=== PATIENT | female | born 2000 | race Two or more races ===

== ENCOUNTER → 2024-08-26 | Outpatient (BNVA) | payer MEDICAID, SELFPAY | END | disposition home or self-care (01) | PROVIDERS: PCP Nurse Practitioner Family; Referring Provider Nurse Practitioner Family; Visit Provider Nurse Practitioner Family | DX: Z30.42 Encounter for surveillance of injectable contraceptive (principal) | CPT/HCPCS: 96372; 99214; J1050 ==

== ENCOUNTER → 2024-08-27 | Outpatient (BNVA) | payer MEDICAID, SELFPAY | END | disposition home or self-care (01) | PROVIDERS: PCP Nurse Practitioner Family; Referring Provider Nurse Practitioner Family; Visit Provider Nurse Practitioner Family | DX: J06.9 Acute upper respiratory infection, unspecified (principal); J02.9 Acute pharyngitis, unspecified | CPT/HCPCS: 87804; 87811; 99213 ==

== ENCOUNTER → 2024-10-09 | Outpatient (BNVA) | payer MEDICAID, SELFPAY | END | disposition home or self-care (01) | PROVIDERS: PCP Nurse Practitioner Family; Referring Provider Nurse Practitioner Family; Visit Provider Nurse Practitioner Family | DX: Z71.2 Person consulting for explanation of examination or test findings (principal); E78.5 Hyperlipidemia, unspecified | CPT/HCPCS: 99213 ==

== ENCOUNTER → 2024-10-15 | Outpatient (BNVA) | payer MEDICAID, SELFPAY | END | disposition home or self-care (01) | PROVIDERS: PCP Nurse Practitioner Family; Referring Provider Nurse Practitioner Family; Visit Provider Nurse Practitioner Family | DX: N76.0 Acute vaginitis (principal); Z12.4 Encounter for screening for malignant neoplasm of cervix; N63.0 Unspecified lump in unspecified breast | CPT/HCPCS: 81001; 81025; 99215; Q0091 ==

== ENCOUNTER → 2024-10-30 | Outpatient (BNVA) | payer MEDICAID, SELFPAY | END | disposition home or self-care (01) | PROVIDERS: PCP Nurse Practitioner Family; Referring Provider Nurse Practitioner Family; Visit Provider Nurse Practitioner Family | DX: Z12.4 Encounter for screening for malignant neoplasm of cervix (principal); Z71.2 Person consulting for explanation of examination or test findings | CPT/HCPCS: 99212; 99213; G0463 ==

== ENCOUNTER → 2024-11-11 | Outpatient (BNVA) | payer MEDICAID, SELFPAY | END | disposition home or self-care (01) | PROVIDERS: PCP Nurse Practitioner Family; Referring Provider Nurse Practitioner Family; Visit Provider Nurse Practitioner Family | DX: Z30.011 Encounter for initial prescription of contraceptive pills (principal) | CPT/HCPCS: 81025; 99214 ==

== ENCOUNTER → 2024-11-23 | Outpatient (BNVA) | payer MEDICAID, SELFPAY | END | disposition home or self-care (01) | PROVIDERS: PCP Nurse Practitioner Family; Referring Provider Nurse Practitioner Family; Visit Provider Nurse Practitioner Family | DX: Z71.2 Person consulting for explanation of examination or test findings (principal); E78.5 Hyperlipidemia, unspecified | CPT/HCPCS: 99212; G0463 ==

== ENCOUNTER → 2024-12-25 | Outpatient (CLI) | payer MEDICAID, SELFPAY ==
--- NOTE | 2024-12-25 15:00 | XR_ITS ---
Examination: Breast ultrasound complete, bilateral Date and time of exam: December 25, 2024 1508 hrs. Indications: Patient states lump left breast this month Technique: Real-time grayscale ultrasonographic imaging bilateral breasts, including all 4 quadrants as well as nipple retroareolar and axillary regions. Findings: Sonographic images right breast 12:00 nodule circumscribed 6 x 6 mm 2:00 nodule circumscribed 8 x 6 mm 3:00 nodule circumscribed 16 x 14 mm 11:00 nodule circumscribed 7 x 7 mm 11:00 nodule circumscribed 8 x 9 mm 11:00 nodule circumscribed 6 x 6 mm Sonographic images left breast 3:00 nodule circumscribed 7 x 4 mm 4:00 nodule circumscribed 6 x 6 mm 4:00 nodule circumscribed 8 x 8 mm 6:00 nodule circumscribed 4 x 4 millimeter Impression: BI-RADS Category 3: Probably benign findings. One additional 6 month bilateral breast sonography follow-up is needed to document stability of multiple solid nodules described above
== END | disposition home or self-care (01) ==
LOC: CDIM 14:43
PROVIDERS: PCP Nurse Practitioner Family; Referring Provider Nurse Practitioner Family; Visit Provider Nurse Practitioner Family
DX: N63.25 Unspecified lump in the left breast, overlapping quadrants (principal); N63.15 Unspecified lump in the right breast, overlapping quadrants; N63.23 Unspecified lump in the left breast, lower outer quadrant; N63.11 Unspecified lump in the right breast, upper outer quadrant; N63.12 Unspecified lump in the right breast, upper inner quadrant
CPT/HCPCS: 76641

== ENCOUNTER → 2025-02-04 | Outpatient (BNVA) | payer MEDICAID, SELFPAY | END | disposition home or self-care (01) | PROVIDERS: PCP Nurse Practitioner Family; Referring Provider Nurse Practitioner Family; Visit Provider Nurse Practitioner Family | DX: Z30.09 Encounter for other general counseling and advice on contraception (principal) | CPT/HCPCS: 99215 ==

== ENCOUNTER 2025-02-24 14:50 | Outpatient (AMB) | payer MEDICAID, SELFPAY ==
[2025-02-24 15:14] VITALS: BP 135/84; PULSE 80; RESP 17; TEMP 36.8; O2SAT 99; BMI 30.9
--- NOTE | 2025-02-24 15:14 | GYNCLNT_ITS ---
Vital Signs 02/24/25 15:14 Height 1.6 m Height Method Stated Weight 79.038 kg Weight Measurement Method Standing Scale BMI 30.9 BP 135/84 H Blood Pressure Source Automatic Cuff Blood Pressure Location Right Upper Arm Position Sitting Respiration 17 Pulse 80 Pulse Source Monitor Temp 98.3 F Temp Source Temporal Artery Scan Pulse Oximetry (%) 99 Oxygen Delivery Method Room Air Allergies/Home Meds Allergies & Medications Allergies No Known Allergies Allergy (Verified 02/24/25 15:15) Medication Reconciliation drospirenone 3 mg-ethinyl estradiol 0.02 mg tablet (POOJA (28)) 1 tab PO QDAY #84 tabs 02/24/25 [Rx] Intake Visit Data Collection New Patient or Established: Established Patient (seen at [facility] within 3 years) Reason for Visit:: IUD CONSULTATION Seen by Clinical Staff ONLY (RN/MA): No Auto Rental Supervisor Required: No Do You Feel Safe at Home: Yes Authorities Contacted: N/A PCP or OBGYN visit in last 3 months: Yes Date of Last PCP or OBGYN visit: 02/04/25 Hx Now: No Are you currently on any form of Control: Yes Pain Present Currently: Yes Pain Location: Abdomen Pain Scale Used: Craig-Cantu/Numerical Pain scale:: 3 Smoking Status Smoking Status: Never smoker 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 Menstrual regularity: irregular Flow: normal Monthly: No How many days does period last: 4 Age at menarche: 11 Menopausal: No Currently sexually active: Yes If not currently sexually active, have you ever been sexually active: Yes Additional comments: OCP 3RD MATE: Past Medical History Past Medical History: No Hx Renal Disease, No Hx Diabetes Mellitus Type 1 and No Hx Diabetes Mellitus Type 2 Questionnaires Covid-19 Vaccine Questionnaire Has patient been vacinated for Covid-19 Have you been vacinated for Covid-19: Yes PHQ-9 PHQ-2 Over the last 2 weeks, how often have you been bothered by any of the following problems? 1. Little interest or pleasure in doing things: not at all 2. Feeling down, depressed, or hopeless: not at all Total score: 0 PHQ-9 3. Trouble falling or staying asleep, or sleeping too much: Not at all 4. Feeling tired or having little energy: Not at all 5. Poor appetite or overeating: Not at all 6. Feeling bad about yourself - or that you are a failure or have let yourself or your family down: Not at all 7. Trouble concentrating on things, such as reading the newspaper or watching television: Not at all 8. Moving or speaking so slowly that other people could have noticed? - Or the opposite - being so fidgety or restless that you have been moving around a lot more than usual: not at all 9. Thoughts that you would be better off or of hurting yourself in some way: Not at all Total score: 0 If you checked off any problems, how difficult have these problems made it for you to do your work, take care of things at home, or get along with other people?: not difficult at all Source: Developed by Drs. Moshe Ye, Sarah Aden, Sanjay Galvan and colleagues, with an educational ho from [employer]. Depression screen completed yes Social History Living Situation History Lives With: Spouse Housing: House Tobacco History Smoking Status: Never smoker Second Hand Smoke Exposure: No Alcohol History Alcohol Intake: Current Alcohol Intake Frequency: holidays/special occasions only Substance Use History Substance Use: NEVER Domestic Abuse History Do You Feel Safe at Home: Yes History of Present Illness HPI Narrative 24 yo nullip for consult on IUP insert. lmp 02/23/25. resently stopped depo. and OCP. patient was started on camlia and did not get menses. c/o acne on francisco javier. no existing PMH, does not have social habit. Left breast lump removed/benign. patient was happy with OCP. after talking about several BC methods, opts to restart ocp Review of Systems Review of Systems Systems Reviewed: All systems reviewed, normal except as documented Exam Narrative Physical exam: mild facial acne General Limitations: no limitations General Appearance: alert, in no apparent distress, comfortable, cooperative, healthy appearing, well developed and well groomed Head Head exam: atraumatic, normocephalic and normal inspection Resp Respiratory exam: Present normal lung sounds bilaterally Card Cardiovascular exam: Present regular rate, normal rhythm and normal heart sounds Abdominal Abdominal exam: Present soft and normal bowel sounds Psych Psychiatric exam: Present normal affect and normal mood Office Procedures OB Clinic LOC & Office Proc's Nursing/Assessment Patient Status: Established Patient OB Clinic Nursing Assessment: Medication Reconciliation, Update PMH in EMR and Vital Signs OB Clinic Coordination of Care: Complex Care and Chronic Disease 1-5, Consent,records obtained, informed consent, Education Simp Pt/Fam and Staff clarify orders Established Patient Charge Established Patient Point Assignment: 85 Established Patient Point Charge: EP Level 3 (80-115) Assessment & Plan Diagnosis / Problem List (1) Oral contraceptive prescribed: Status: Acute Plan reviewed IUD, paraguard, nexplanon and nuva ring. start Pooja x6. start today. review method and side effect. condom x 2 week,discuss diet and exercise. safe sex, rtc 3 month for f/u on ocp Additional Plan Follow Up: 3 Months (ocp f/u)
== END 2025-02-24 15:42 | disposition home or self-care (01) ==
LOC: HODSOBC 14:50
PROVIDERS: PCP Nurse Practitioner Family; Referring Provider Nurse Practitioner Family; Supervising Provider Advanced Practice Midwife; Visit Provider Advanced Practice Midwife
DX: Z30.011 Encounter for initial prescription of contraceptive pills (principal); L70.9 Acne, unspecified
CPT/HCPCS: 99213; G0463